=== PATIENT | female | born 1985 | race Caucasian/White ===

== ENCOUNTER 2019-11-13 12:43 | Outpatient (CLI) | payer BC, MEDICAID ==
[~2019-11-13] VITALS: Ht 162.6 cm; Wt 127.3 kg
[2019-11-13 13:12] LABS: BASOPHILS # (AUTO) 0.01 x10^3/uL (0-0.1); BASOPHILS % (AUTO) 0 % (0-1); EOSINOPHILS # (AUTO) 0.08 x10^3/uL (0-0.4); EOSINOPHILS % (AUTO) 1 % (1-7); LYMPHOCYTES # (AUTO) 1.95 x10^3/uL (1-3.4); LYMPHOCYTES % (AUTO) 17 % (22-44); MD NO; MEAN CORPUSCULAR HGB CONC 33.4 g/dL (32.4-35.8); MEAN CORPUSCULAR VOLUME 90.1 fL (80-100); MEAN PLATELET VOLUME 9.2 fL (7.4-10.4); MONOCYTES # (AUTO) 0.63 x10^3/uL (0.2-0.8); MONOCYTES % (AUTO) 5 % (2-9); NEUTROPHILS # (AUTO) 9.12 x10^3/uL (1.8-6.8); NEUTROPHILS % (AUTO) 77 % (42-75); PLATELET COUNT 326 x10^3/uL (130-400); RED BLOOD COUNT 3.57 x10^6/uL (3.82-5.3)
[2019-11-13 13:18] LABS: ALANINE AMINOTRANSFERASE 15 U/L (12-78); ALBUMIN 2.5 g/dL (3.4-5.0); ANION GAP 9 mmol/L (5-15); CALCIUM 8.9 mg/dL (8.5-10.1); CHLORIDE 109 mmol/L (98-107); CREATININE 0.72 mg/dL (0.55-1.02)
[2019-11-13 13:21] LABS: ALKALINE PHOSPHATASE 101 U/L (45-117); BILIRUBIN,TOTAL 0.3 mg/dL (0.2-1.0); TOTAL PROTEIN 6.8 g/dL (6.4-8.2)
[2019-11-13 13:29] LABS: MICROSCOPIC INDICATED
== END 2019-11-13 14:06 | disposition home or self-care (01) ==
LOC: LDOP 12:43
PROVIDERS: ATTEND Obstetrics & Gynecology
DX: O13.3 Gestational [pregnancy-induced] hypertension without significant proteinuria, third trimester (principal); Z3A.38 38 weeks gestation of pregnancy
CPT/HCPCS: 36415; 59025; 80053; 81001; 82570; 84156; 84550; 85025; 87086

== ENCOUNTER 2019-11-23 02:55 | Inpatient (IN) | payer BC, MEDICAID ==
[~2019-11-23] VITALS: Ht 162.6 cm; Wt 129.5 kg
[2019-11-23] MEDS ORDERED: LACTATED RINGERS 1,000 ML IV SCH (10:09)
[2019-11-23] MEDS ORDERED: ASPI-515 PO (10:29)
[2019-11-23 10:30] VITALS: BP 123/73
[2019-11-23] MEDS ORDERED: METOCLOPRAMIDE 5 MG/ML, 2ML IV ONE (10:30)
[2019-11-23] MEDS ORDERED: LACTATED RINGERS 1,000 ML IVBOLUS ONE (10:30)
[2019-11-23] MEDS ORDERED: SODIUM CITRATE/CITRIC ACID 30 ML UDC PO ONE (10:30)
[2019-11-23 11:02] LABS: MICROSCOPIC INDICATED
[2019-11-23] MEDS ORDERED: OXYTOCIN 30U/ 0.9% NaCL 500ML 500 ML ONE (11:09)
[2019-11-23] MEDS ORDERED: NEWBORN KIT ONE (11:09)
[2019-11-23] MEDS ORDERED: METOCLOPRAMIDE 5 MG/ML, 2ML ONE (11:09)
[2019-11-23] MEDS ORDERED: morphine SULFATE/PF 0.5 MG/ML, 10ML ONE (11:13)
[2019-11-23] MEDS ORDERED: ONDANSETRON 2MG/ML, 2ML ONE (11:15)
[2019-11-23] MEDS ORDERED: EPHEDRINE 50 MG/ML, 1ML ONE (11:15)
[2019-11-23] MEDS ORDERED: PHENYLEPHRINE 10 MG/ML ONE (11:15)
[2019-11-23] MEDS ORDERED: CEFAZOLIN 1,000 MG ONE ×2 (11:15→13:02)
[2019-11-23] MEDS ORDERED: OXYTOCIN 10 UNITS/ML, 1ML ONE (11:15)
[2019-11-23] MEDS ORDERED: WATER-INJECTION,STERILE 10 ML IV ONE ×2 (11:15→13:03)
[2019-11-23] MEDS ORDERED: EPINEPHRINE 1 MG/ML, 1ML ONE (11:15)
[2019-11-23] MEDS ORDERED: CALCIUM CHLORIDE 10%, 10ML SYR ONE (11:16)
[2019-11-23 11:26] LABS: BASOPHILS # (AUTO) 0.03 x10^3/uL (0-0.1); BASOPHILS % (AUTO) 0 % (0-1); EOSINOPHILS # (AUTO) 0.05 x10^3/uL (0-0.4); EOSINOPHILS % (AUTO) 0 % (1-7); LYMPHOCYTES % (AUTO) 19 % (22-44); MD NO; MEAN CORPUSCULAR HEMOGLOBIN 30.2 pg (27.0-34.8); MEAN CORPUSCULAR HGB CONC 33.2 g/dL (32.4-35.8); MEAN PLATELET VOLUME 9.5 fL (7.4-10.4); MONOCYTES # (AUTO) 0.64 x10^3/uL (0.2-0.8); MONOCYTES % (AUTO) 5 % (2-9); NEUTROPHILS # (AUTO) 8.83 x10^3/uL (1.8-6.8); NEUTROPHILS % (AUTO) 75 % (42-75); PLATELET COUNT 306 x10^3/uL (130-400); RED BLOOD COUNT 3.56 x10^6/uL (3.82-5.3); RED CELL DISTRIBUTION WIDTH 17.4 % (9.6-15.2)
[2019-11-23 11:29] LABS: ALBUMIN 2.5 g/dL (3.4-5.0); ANION GAP 9 mmol/L (5-15); CALCIUM 9.8 mg/dL (8.5-10.1); CHLORIDE 110 mmol/L (98-107)
[2019-11-23 11:33] LABS: ALANINE AMINOTRANSFERASE 14 U/L (12-78); ALKALINE PHOSPHATASE 105 U/L (45-117); BILIRUBIN, DIRECT 0.1 mg/dL (0.1-0.2); BILIRUBIN,TOTAL 0.4 mg/dL (0.2-1.0); CREATININE 0.71 mg/dL (0.55-1.02); TOTAL PROTEIN 6.6 g/dL (6.4-8.2)
[2019-11-23] MEDS: LACTATED RINGERS 1,000 ML IV SCH ×4 (13:01→23:01)
[2019-11-23] MEDS ORDERED: OXYcodone/APAP 5/325MG TABLET PO PRN (13:30)
[2019-11-23] MEDS ORDERED: ONDANSETRON 2MG/ML, 2ML IV PRN (13:30)
[2019-11-23] MEDS ORDERED: METHYLERGONOVINE 0.2 MG/ML IM PRN (13:30)
[2019-11-23] MEDS ORDERED: MORPHINE SULFATE 4 MG/ML, 1ML IVPush PRN (13:30)
[2019-11-23] MEDS ORDERED: GLYCERIN ADULT SUPP PR PRN (13:30)
[2019-11-23] MEDS ORDERED: MISOPROSTOL 200 MCG TABLET PR PRN (13:30)
[2019-11-23] MEDS ORDERED: BISACODYL 10 MG SUPP PR PRN (13:30)
[2019-11-23] MEDS ORDERED: morphine SULFATE 10 MG/ML, 1ML IV PRN (13:30)
[2019-11-23] MEDS: OXYTOCIN 30U/ 0.9% NaCL 500ML 500 ML IV SCH ×2 (13:38→23:01)
[2019-11-23] MEDS ORDERED: LABETALOL 200 MG TABLET PO SCH (14:00)
[2019-11-23] MEDS ORDERED: KETOROLAC 30 MG/1 ML ONE (14:09)
[2019-11-23] MEDS ORDERED: LABETALOL 200 MG TABLET ONE (14:10)
[2019-11-23] MEDS: KETOROLAC 30 MG/1 ML IVPush SCH ×2 (14:12→20:06)
[2019-11-23 15:15] VITALS: BP 148/83
[2019-11-23] MEDS: DOCUSATE 100 MG CAPSULE PO PRN (20:06)
[2019-11-23] MEDS: SIMETHICONE 80 MG CHEW TAB PO PRN (20:06)
[2019-11-23] MEDS: OXYcodone/APAP 5/325MG TABLET PO PRN (20:08)
[2019-11-23 20:39] LABS: BASOPHILS # (AUTO) 0.06 x10^3/uL (0-0.1); BASOPHILS % (AUTO) 1 % (0-1); EOSINOPHILS # (AUTO) 0.15 x10^3/uL (0-0.4); EOSINOPHILS % (AUTO) 1 % (1-7); LYMPHOCYTES # (AUTO) 2.34 x10^3/uL (1-3.4); LYMPHOCYTES % (AUTO) 20 % (22-44); MD NO; MEAN CORPUSCULAR HEMOGLOBIN 29.6 pg (27.0-34.8); MEAN CORPUSCULAR HGB CONC 32.6 g/dL (32.4-35.8); MEAN CORPUSCULAR VOLUME 90.8 fL (80-100); MEAN PLATELET VOLUME 9.1 fL (7.4-10.4); MONOCYTES # (AUTO) 0.56 x10^3/uL (0.2-0.8); MONOCYTES % (AUTO) 5 % (2-9); NEUTROPHILS # (AUTO) 8.89 x10^3/uL (1.8-6.8); NEUTROPHILS % (AUTO) 74 % (42-75); PLATELET COUNT 252 x10^3/uL (130-400); RED BLOOD COUNT 3.18 x10^6/uL (3.82-5.3); RED CELL DISTRIBUTION WIDTH 17.2 % (9.6-15.2)
[2019-11-23 21:15] VITALS: BP 122/79
[2019-11-24 00:28] VITALS: BP 124/76
[2019-11-24] MEDS: KETOROLAC 30 MG/1 ML IVPush SCH ×4 (02:00→20:00)
[2019-11-24] MEDS: SIMETHICONE 80 MG CHEW TAB PO PRN ×3 (02:00→20:45)
[2019-11-24 04:00] VITALS: BP 128/85
[2019-11-24] MEDS: LACTATED RINGERS 1,000 ML IV SCH ×5 (05:01→21:01)
[2019-11-24] MEDS: PRENATAL VIT/IRON/FA 1 EACH TABLET PO SCH (07:41)
[2019-11-24] MEDS: DOCUSATE 100 MG CAPSULE PO PRN ×2 (07:41→20:45)
[2019-11-24 07:57] VITALS: BP 142/85
[2019-11-24] MEDS: OXYTOCIN 30U/ 0.9% NaCL 500ML 500 ML IV SCH ×2 (09:01→19:01)
[2019-11-24 12:57] VITALS: BP 139/80
[2019-11-24 16:30] VITALS: BP 142/77
[2019-11-24 20:00] VITALS: BP 129/83
[2019-11-24] MEDS: IBUPROFEN 800 MG TABLET PO PRN (20:45)
[2019-11-24] MEDS: OXYcodone/APAP 5/325MG TABLET PO PRN (20:45)
[2019-11-25] MEDS: KETOROLAC 30 MG/1 ML IVPush SCH ×3 (02:00→14:00)
[2019-11-25] MEDS: SIMETHICONE 80 MG CHEW TAB PO PRN ×2 (02:32→07:50)
[2019-11-25] MEDS: OXYcodone/APAP 5/325MG TABLET PO PRN ×3 (02:33→13:17)
[2019-11-25] MEDS: IBUPROFEN 800 MG TABLET PO PRN ×2 (04:40→13:16)
[2019-11-25] MEDS: LACTATED RINGERS 1,000 ML IV SCH ×4 (05:01→15:01)
[2019-11-25] MEDS: OXYTOCIN 30U/ 0.9% NaCL 500ML 500 ML IV SCH ×2 (05:01→15:01)
[2019-11-25 07:45] VITALS: BP 156/84
[2019-11-25] MEDS: PRENATAL VIT/IRON/FA 1 EACH TABLET PO SCH (07:50)
[2019-11-25] MEDS: DOCUSATE 100 MG CAPSULE PO PRN (07:50)
[2019-11-25] MEDS ORDERED: IBUP200T49 PO (13:52)
[2019-11-25] MEDS ORDERED: OXYC-302 PO (13:54)
[2019-11-25] MEDS ORDERED: DOCU-131 PO (13:55)
== END 2019-11-25 14:41 | disposition home or self-care (01) | DRG 785 ==
LOC: LDIP 10:01 → 2NW 15:00
PROVIDERS: ADMIT Obstetrics & Gynecology; ATTEND Obstetrics & Gynecology
PROC: 0UB70ZZ Excision of Bilateral Fallopian Tubes, Open Approach (ICD-10-PCS; principal; 2019-11-23)
PROC: 10D00Z1 Extraction of Products of Conception, Low, Open Approach (ICD-10-PCS; 2019-11-23)
DX: O34.211 Maternal care for low transverse scar from previous cesarean delivery (principal); Z20.828 Contact with and (suspected) exposure to other viral communicable diseases; O40.3XX0 Polyhydramnios, third trimester, not applicable or unspecified; O69.81X0 Labor and delivery complicated by cord around neck, without compression, not applicable or unspecified; Z30.2 Encounter for sterilization; Z37.0 Single live birth; Z3A.40 40 weeks gestation of pregnancy; Z40.03 Encounter for prophylactic removal of fallopian tube(s)
CPT/HCPCS: 36415; 80053; 81001; 82248; 82570; 84156; 84550; 85025; 86592; 86850; 86900; 87635; 88302; G0378; J0171; J0690; J1885; J2274; J2405; J2370; J2590; J2765; J7120